=== PATIENT | female | born 1960 | race Caucasian/White ===

== ENCOUNTER 2024-01-28 14:18 | Emergency (ER) | payer MEDICAID ==
[~2024-01-28] VITALS: Ht 152.4 cm; Wt 64.0 kg
[2024-01-28 14:30] VITALS: TEMP 98
[2024-01-28] MEDS ORDERED: ACETAMINOPHEN ES 500 MG TABLET ONE (14:57)
[2024-01-28] MEDS ORDERED: IBUPROFEN 600 MG TABLET ONE (14:58)
[2024-01-28] MEDS: IBUPROFEN 600 MG TABLET PO ONE (15:01)
[2024-01-28] MEDS: ACETAMINOPHEN ES 500 MG TABLET PO ONE (15:01)
[2024-01-28] MEDS ORDERED: PSEU120T83 PO (16:21)
[2024-01-28] MEDS ORDERED: AMOX-430 PO (16:21)
[2024-01-28] MEDS ORDERED: TRAM-351 PO (16:21)
[2024-01-28] MEDS ORDERED: KETO10TA2 PO (16:21)
[2024-01-28 16:43] VITALS: BP 145/80; O2SAT 98
== END 2024-01-28 16:44 | disposition home or self-care (01) ==
LOC: ER 14:25
DX: S02.2XXA Fracture of nasal bones, initial encounter for closed fracture (principal); S09.93XA Unspecified injury of face, initial encounter; W01.198A Fall on same level from slipping, tripping and stumbling with subsequent striking against other object, initial encounter; Y93.89 Activity, other specified; Y92.89 Other specified places as the place of occurrence of the external cause; Y99.8 Other external cause status
CPT/HCPCS: 70450-TC; 70486-TC